=== PATIENT | female | born 1950 | race African-American/Black ===

== ENCOUNTER 2018-11-26 13:41 | Inpatient (IN) | payer MEDICARE, MEDICAID ==
[~2018-11-26] VITALS: Ht 157.5 cm; Wt 47.6 kg
[2018-11-26] MEDS ORDERED: MAG HYDROX/AL HYDROX/SIMETH 30 ML UDC PO PRN (16:00)
[2018-11-26] MEDS ORDERED: MAGNESIUM HYDROXIDE 30 ML UDC PO PRN (16:00)
[2018-11-26] MEDS ORDERED: ACETAMINOPHEN 325 MG TABLET PO PRN (16:00)
[2018-11-26] MEDS ORDERED: LORAZEPAM 0.5 MG TABLET PO PRN (16:00)
--- NOTE | 2018-11-26 16:00 | NUR ---
RN-CO: DR TOBAR GAVE ADMITTING ORDERS.
--- NOTE | 2018-11-26 16:30 | NUR ---
GPS COMPUTER SUPPORT SPECIALIST INSTRUCTOR NOTES Received patient from for [facility] under the (medical) care of Shaun Trinh and (psych care) Dr. Morales. Patient arrived on this unit @1530. via gurney with 2 mine analyst. Patient self-presented to [facility] for recent seizures. She was medically cleared but there were behavioral concerns, so psychiatry consulted. On 5150 hold for GD and DTO. Skin body assessment done. Patient is currently lying in bed, resting, easily aroused. Patient is displaying no s/s of apparent distress at this moment. Breathing is unlabored with equal rise and fall of the chest. Patient is aler and oriented x2 (self and place), verbally responsive. All belongings checked and documented by OTR TRUCK DRIVER. All contraband removed and stored in patient's locker. Patient oriented to room, floor, and staff with all questions and concerns addressed. Patient educated on the use of call lomas when any assistance is needed. Patient bed side rails are up x2 for safety. Bed in locked and lowest position with bed alarm on and call lomas within reach. Will continue to monitor patient Q15 minutes with the help of staff to maintain safety
[2018-11-26] MEDS ORDERED: RISP0.5T5 PO (16:47)
[2018-11-26] MEDS ORDERED: PHEN100C4 PO (16:47)
[2018-11-26] MEDS ORDERED: LOSA100T31 PO (16:47)
[2018-11-26] MEDS ORDERED: AMLO10TA7 PO (16:47)
[2018-11-26] MEDS ORDERED: ERGO400T7 PO (16:47)
--- NOTE | 2018-11-26 18:21 | NUR ---
GPS RN CLOSING NOTES Patient remained in bed, intermittently sleeping, easily aroused. No facial grimacing or moaning noted. Denies any pain. No SOB/labored breathing noted. Not in any apparent distress. Admitting orders are in. Medical provider came to assess patient. All needs provided and met. Safety measures implemented and observed. Kept clean and dry. Bed in locked and lowest position with bed alarm on and call lomas within reach. Will endorse to oncoming shift nurse
--- NOTE | 2018-11-26 18:24 | NUR ---
RN-CO: Patient was seen and examined by Eveline Trinh NP.
[2018-11-26 20:00] VITALS: BP 147/74
[2018-11-26 20:26] LABS: BASOPHILS # (AUTO) 0.1 /CMM (0.0-0.2); EOSINOPHILS % (AUTO) 2.9 % (0.0-6.0); HEMATOCRIT 29 % (33-45); HEMOGLOBIN 9.3 g/dL (11.5-14.8); LYMPHOCYTES # (AUTO) 1.4 /CMM (0.8-4.8); LYMPHOCYTES % (AUTO) 22.9 % (20.0-44.0); MEAN CORPUSCULAR HGB CONC 33 g/dl (31.0-36.0); MEAN CORPUSCULAR VOLUME 102 fL (82-100); MONOCYTES # (AUTO) 0.9 /CMM (0.1-1.30); MONOCYTES % (AUTO) 14.8 % (2.0-12.0); NEUTROPHILS # (AUTO) 3.7 /CMM (1.8-8.9); NEUTROPHILS % (AUTO) 58.4 % (43.0-81.0); PLATELET COUNT (AUTO) 271 /CMM (150-450); WHITE BLOOD COUNT (AUTO) 6.3 K/uL (4.3-11.0)
[2018-11-26 20:33] LABS: CALCIUM, SERUM 7.8 mg/dL (8.5-10.1); CREATININE 2.6 mg/dL (0.6-1.3); POTASSIUM 4.4 mmol/L (3.5-5.1)
[2018-11-26] MEDS: TEMAZEPAM 7.5 MG CAPSULE PO PRN (21:22)
[2018-11-27 07:10] LABS: BASOPHILS % (AUTO) 0.5 % (0.0-2.0); EOSINOPHILS % (AUTO) 3.4 % (0.0-6.0); HEMATOCRIT 29 % (33-45); HEMOGLOBIN 9.5 g/dL (11.5-14.8); LYMPHOCYTES # (AUTO) 1.7 /CMM (0.8-4.8); LYMPHOCYTES % (AUTO) 28.2 % (20.0-44.0); MEAN CORPUSCULAR HGB CONC 33 g/dl (31.0-36.0); MEAN CORPUSCULAR VOLUME 105 fL (82-100); MONOCYTES # (AUTO) 0.6 /CMM (0.1-1.30); MONOCYTES % (AUTO) 10.9 % (2.0-12.0); NEUTROPHILS # (AUTO) 3.4 /CMM (1.8-8.9); PLATELET COUNT (AUTO) 236 /CMM (150-450); RED BLOOD CELL COUNT(AUTO) 2.79 MIL/uL (4.0-5.2)
[2018-11-27 07:27] LABS: ALBUMIN 3.1 g/dL (3.4-5.0); BILIRUBIN,TOTAL 0.4 mg/dL (0.2-1.0); CREATININE 2.7 mg/dL (0.6-1.3); MAGNESIUM 1.8 mg/dL (1.8-2.4); PHOSPHORUS 3.4 mg/dL (2.5-4.9); POTASSIUM 4.4 mmol/L (3.5-5.1); TOTAL PROTEIN, SERUM 6.4 g/dL (6.4-8.2)
[2018-11-27 08:00] VITALS: BP 178/87
--- NOTE | 2018-11-27 08:45 | NUR ---
rn note received patient in bed at this time. able to communicate needs. alert and oriented X1-2. no facial grimacing noted for pain. no sob or distress noted on room air tolerating well. ambulatory with assistance. on 5150 hold until 11/29/18. will continue to monitor throughout shift
[2018-11-27] MEDS: risperiDONE 0.25 MG TABLET PO SCH ×2 (08:58→16:24)
[2018-11-27] MEDS: LOSARTAN POTASSIUM 50 MG TABLET PO SCH (08:59)
[2018-11-27] MEDS: AMLODIPINE BESYLATE 10 MG TABLET PO SCH (09:00)
[2018-11-27] MEDS: PHENYTOIN EXTENDED RELEASE 100 MG CAPSULE PO SCH ×2 (09:00→16:20)
--- NOTE | 2018-11-27 09:01 | NUR ---
rn note notified lew morrow np in regards to patient's phenytoin level-21.3 at this time to hold 0900 dose. order noted and carried out
--- NOTE | 2018-11-27 10:00 | NUR ---
rn note professor of industrial technology at bedside for [facility] for increased creatinine. awaiting results
[2018-11-27] MEDS: IV NS 0.9% 1,000 ML IV PRN (15:26)
--- NOTE | 2018-11-27 15:27 | NUR ---
rn note per lew morrow np to give one ns liter bolus. order noted and carried out. bolus started
[2018-11-27 16:00] VITALS: BP 131/72
[2018-11-27 16:03] VITALS: BP 131/72
--- NOTE | 2018-11-27 18:31 | NUR ---
rn closing note patient in bed asleep at this time. able to communicate needs. alert and oriented X1-2. no facial grimacing noted for pain. no sob or distress noted on room air tolerating well. ambulatory with assistance. on 5150 hold until 11/29/18. al due medications given as ordered by md. all nursing care needs attended to as needed. md aware about phenytoin level-21.3 and held dose for today. 1 liter of ns bolus given.will endorse to analyst market intelligence nurse for riya
[2018-11-27 20:00] VITALS: BP 144/63
[2018-11-27] MEDS: TEMAZEPAM 7.5 MG CAPSULE PO PRN (20:27)
[2018-11-28 07:44] LABS: BASOPHILS % (AUTO) 0.8 % (0.0-2.0); EOSINOPHILS % (AUTO) 3.7 % (0.0-6.0); HEMATOCRIT 32 % (33-45); HEMOGLOBIN 10.5 g/dL (11.5-14.8); LYMPHOCYTES # (AUTO) 1.4 /CMM (0.8-4.8); LYMPHOCYTES % (AUTO) 23.4 % (20.0-44.0); MEAN CORPUSCULAR HGB CONC 33 g/dl (31.0-36.0); MEAN CORPUSCULAR VOLUME 102 fL (82-100); MONOCYTES # (AUTO) 0.6 /CMM (0.1-1.30); MONOCYTES % (AUTO) 10.7 % (2.0-12.0); NEUTROPHILS # (AUTO) 3.6 /CMM (1.8-8.9); NEUTROPHILS % (AUTO) 61.4 % (43.0-81.0); PLATELET COUNT (AUTO) 262 /CMM (150-450); RED BLOOD CELL COUNT(AUTO) 3.14 MIL/uL (4.0-5.2); WHITE BLOOD COUNT (AUTO) 5.9 K/uL (4.3-11.0)
[2018-11-28 08:00] VITALS: BP 164/81
[2018-11-28] MEDS: AMLODIPINE BESYLATE 10 MG TABLET PO SCH (08:05)
[2018-11-28] MEDS: risperiDONE 0.25 MG TABLET PO SCH ×2 (08:05→16:55)
[2018-11-28] MEDS: PHENYTOIN EXTENDED RELEASE 100 MG CAPSULE PO SCH ×2 (08:06→17:00)
[2018-11-28] MEDS: LOSARTAN POTASSIUM 50 MG TABLET PO SCH (08:06)
[2018-11-28 08:27] LABS: CALCIUM, SERUM 8.7 mg/dL (8.5-10.1); CREATININE 2.6 mg/dL (0.6-1.3); MAGNESIUM 1.9 mg/dL (1.8-2.4); PHOSPHORUS 2.9 mg/dL (2.5-4.9)
[2018-11-28] MEDS: SERTRALINE HCL 25 MG TABLET PO SCH (10:29)
--- NOTE | 2018-11-28 14:30 | NUR ---
DEMETRIO called the pt's friend, Beckie ([phone]), and asked him about the house that the pt lives in and the people who live in the house with her. He stated that she is welcome to return when she is discharged.
--- NOTE | 2018-11-28 14:47 | NUR ---
Initial Discharge Plan: Pt currently resides at a home with others located at [address] [place] [address]; ([phone]). Per pt. she would like to either return there or find a place of her own. DEMETRIO will work with the pt and the MD regarding appropriate discharge planning. SW will form a safe and proper discharge.
[2018-11-28 16:00] VITALS: BP 155/72
--- NOTE | 2018-11-28 17:09 | NUR ---
TELMA HUDDLESTON PER YAHAIRA N.P. DUE TO HIGH LEVEL 21.3
[2018-11-28 18:27] LABS: APPEARANCE,URINE CLEAR (CLEAR); BILIRUBIN,URINE NEGATIVE (NEGATIVE); BLOOD, URINE TRACE Ery/uL (NEGATIVE); COLOR,URINE YELLOW (YELLOW); KETONES,URINE NEGATIVE (NEGATIVE); LEUKOCYTE ESTERASE ,URINE NEGATIVE (NEGATIVE); NITRITE, URINE NEGATIVE (NEGATIVE); PH,URINE 5.5 (5.0-8.0); PROTEIN,URINE TRACE mg/dl (NEGATIVE); UGLUCOSE NEGATIVE (NEGATIVE); UROBILINOGEN,URINE 0.2 EU/dL (0.2)
[2018-11-28 18:39] LABS: CREATININE, URINE 58.2 MG/DL (30.0-125.0); URINE TOTAL PROTEIN 48.7 mg/dL (0-11.9)
[2018-11-28 18:49] LABS: BACTERIA,URINE None seen /HPF (None Seen); RBC,URINE 0-2 /HPF (0-2); SQUAMOUS EPITHELIAL CELL,UR Few /HPF (None Seen); WBC,URINE 0-2 /HPF (0-3)
[2018-11-28 18:58] LABS: EOSINOPHIL,URINE None Seen
[2018-11-28 20:00] VITALS: BP 138/65
[2018-11-28] MEDS: TEMAZEPAM 7.5 MG CAPSULE PO PRN (20:30)
[2018-11-29 06:58] LABS: BASOPHILS % (AUTO) 0.7 % (0.0-2.0); EOSINOPHILS % (AUTO) 4.3 % (0.0-6.0); HEMATOCRIT 28 % (33-45); HEMOGLOBIN 9.2 g/dL (11.5-14.8); LYMPHOCYTES # (AUTO) 1.6 /CMM (0.8-4.8); LYMPHOCYTES % (AUTO) 29.9 % (20.0-44.0); MEAN CORPUSCULAR HGB CONC 33 g/dl (31.0-36.0); MEAN CORPUSCULAR VOLUME 102 fL (82-100); MONOCYTES # (AUTO) 0.6 /CMM (0.1-1.30); MONOCYTES % (AUTO) 11.1 % (2.0-12.0); NEUTROPHILS # (AUTO) 2.8 /CMM (1.8-8.9); PLATELET COUNT (AUTO) 212 /CMM (150-450); RED BLOOD CELL COUNT(AUTO) 2.74 MIL/uL (4.0-5.2); WHITE BLOOD COUNT (AUTO) 5.2 K/uL (4.3-11.0)
[2018-11-29 07:28] LABS: ALANINE AMINOTRANSFERASE 17 U/L (12-78); ALBUMIN 2.9 g/dL (3.4-5.0); ALKALINE PHOSPHATASE 74 U/L (46-116); ASPARTATE AMINOTRANSFERASE 17 U/L (15-37); BILIRUBIN,TOTAL 0.2 mg/dL (0.2-1.0); CALCIUM, SERUM 7.9 mg/dL (8.5-10.1); CARBON DIOXIDE 20 mmol/L (21-32); CHLORIDE 108 mmol/L (98-107); CREATININE 2.6 mg/dL (0.6-1.3); GLUCOSE 83 mg/dL (74-106); MAGNESIUM 1.8 mg/dL (1.8-2.4); PHOSPHORUS 2.9 mg/dL (2.5-4.9); POTASSIUM 5.3 mmol/L (3.5-5.1); SODIUM SERUM 137 mmol/L (136-145); UREA NITROGEN, BLOOD 54 mg/dL (7-18)
[2018-11-29 08:24] VITALS: BP 181/88
[2018-11-29] MEDS: SERTRALINE HCL 25 MG TABLET PO SCH (08:32)
[2018-11-29] MEDS: risperiDONE 0.25 MG TABLET PO SCH ×2 (08:32→17:25)
[2018-11-29] MEDS: LOSARTAN POTASSIUM 50 MG TABLET PO SCH (08:33)
[2018-11-29] MEDS: PHENYTOIN EXTENDED RELEASE 100 MG CAPSULE PO SCH ×2 (08:33→17:25)
[2018-11-29] MEDS: AMLODIPINE BESYLATE 10 MG TABLET PO SCH (08:34)
[2018-11-29 09:23] LABS: CREATINE KINASE, TOTAL 264 U/L (26-192)
--- NOTE | 2018-11-29 14:33 | NUR ---
URINE SENT PER ORDERS.
--- NOTE | 2018-11-29 15:00 | NUR ---
SKYE MCALLISTER NOTIFIED OF HIGH POTASSIUM TO GIVE ORDERS.
[2018-11-29 16:00] VITALS: BP 108/74
[2018-11-29] MEDS ORDERED: SODIUM POLYSTYRENE SULFONATE 15 G/60 ML BOTTLE PO ONE (16:00)
[2018-11-29] MEDS: IV NS 0.9% 1,000 ML IV PRN (16:31)
--- NOTE | 2018-11-29 18:00 | NUR ---
IV STARTED LT. FOREARM #22 ANGIO NS TO RUN IN DUE TO BUN AND ELEVATED CREATININE.
--- NOTE | 2018-11-29 18:25 | NUR ---
RN WENT IN TO NARRATIVE TO DOCUMENT NOTE AND FIND REFERENCE TO HIGH DILANTIN LEVEL FROM 11/27.TO CALL FRUIT OR NUT CROPS FARM MANAGER.
--- NOTE | 2018-11-29 18:30 | NUR ---
KAYEXALATE GIVEN DUE TO HIGH POTASSIUM.DILANTIN LEVEL FROM 11/27 CALLED TO [facility] MCALLISTER LAB ORDER FOR TOMORROW.
[2018-11-29 20:00] VITALS: BP 121/59
[2018-11-29 21:08] LABS: APPEARANCE,URINE CLEAR (CLEAR); BILIRUBIN,URINE NEGATIVE (NEGATIVE); BLOOD, URINE NEGATIVE Ery/uL (NEGATIVE); COLOR,URINE YELLOW (YELLOW); KETONES,URINE NEGATIVE (NEGATIVE); LEUKOCYTE ESTERASE ,URINE NEGATIVE (NEGATIVE); NITRITE, URINE NEGATIVE (NEGATIVE); PROTEIN,URINE TRACE mg/dl (NEGATIVE); UGLUCOSE NEGATIVE (NEGATIVE); UROBILINOGEN,URINE 0.2 EU/dL (0.2)
[2018-11-29 21:16] LABS: CREATININE, URINE 39.9 MG/DL (30.0-125.0); URINE TOTAL PROTEIN 32.1 mg/dL (0-11.9)
[2018-11-29 21:20] LABS: BACTERIA,URINE None seen /HPF (None Seen); EOSINOPHIL,URINE None Seen; RBC,URINE 0-2 /HPF (0-2); SQUAMOUS EPITHELIAL CELL,UR Few /HPF (None Seen); WBC,URINE 0-2 /HPF (0-3)
[2018-11-30 07:34] LABS: CALCIUM, SERUM 8.3 mg/dL (8.5-10.1); CREATININE 2.4 mg/dL (0.6-1.3); POTASSIUM 4.4 mmol/L (3.5-5.1)
[2018-11-30 07:37] LABS: PHENYTOIN (DILANTIN) 5.7 ug/ml (10.0-20.0)
[2018-11-30 08:00] VITALS: BP 157/89
[2018-11-30] MEDS: LOSARTAN POTASSIUM 50 MG TABLET PO SCH (09:26)
[2018-11-30] MEDS: AMLODIPINE BESYLATE 10 MG TABLET PO SCH (09:26)
[2018-11-30] MEDS: risperiDONE 0.25 MG TABLET PO SCH ×2 (09:26→17:11)
[2018-11-30] MEDS: SERTRALINE HCL 25 MG TABLET PO SCH (09:26)
[2018-11-30] MEDS: PHENYTOIN EXTENDED RELEASE 100 MG CAPSULE PO SCH ×2 (09:52→17:11)
--- NOTE | 2018-11-30 11:35 | NUR ---
GPS/RN-NOTES PROGRAM DIRECTOR/TRAFFIC DIRECTOR YAHAIRA MADE AWARE OF PATIENT LAB RESULTS AND DILANTIN LEVEL OF 5.7. WITH T.O ORDER TO GIVE DILANTIN ORDERED.
[2018-11-30 16:00] VITALS: BP 129/60
[2018-11-30 20:16] VITALS: BP 97/57
[2018-12-01 08:00] VITALS: BP 128/70
--- NOTE | 2018-12-01 08:01 | NUR ---
PT RESTING IN BED COMPLETED MEAL RESTING COMFORTABLY CALM AND COOPERATIVE
--- NOTE | 2018-12-01 10:28 | NUR ---
DEMETRIO faxed a referral to [facility] to the fax number: [phone].
[2018-12-01] MEDS: SERTRALINE HCL 25 MG TABLET PO SCH (11:11)
[2018-12-01] MEDS: LOSARTAN POTASSIUM 50 MG TABLET PO SCH (11:12)
[2018-12-01] MEDS: AMLODIPINE BESYLATE 10 MG TABLET PO SCH (11:12)
[2018-12-01] MEDS: risperiDONE 0.25 MG TABLET PO SCH ×2 (11:12→16:57)
[2018-12-01] MEDS: PHENYTOIN EXTENDED RELEASE 100 MG CAPSULE PO SCH ×2 (11:13→16:57)
[2018-12-01 16:00] VITALS: BP 141/65
[2018-12-01 20:22] VITALS: BP 118/67
[2018-12-02] MEDS: TEMAZEPAM 7.5 MG CAPSULE PO PRN ×2 (00:06→23:24)
[2018-12-02 08:00] VITALS: BP 128/64
[2018-12-02] MEDS: risperiDONE 0.25 MG TABLET PO SCH ×2 (09:27→16:13)
[2018-12-02] MEDS: PHENYTOIN EXTENDED RELEASE 100 MG CAPSULE PO SCH ×2 (09:27→16:13)
[2018-12-02] MEDS: SERTRALINE HCL 25 MG TABLET PO SCH (09:27)
[2018-12-02] MEDS: AMLODIPINE BESYLATE 10 MG TABLET PO SCH (09:28)
[2018-12-02] MEDS: LOSARTAN POTASSIUM 50 MG TABLET PO SCH (09:32)
--- NOTE | 2018-12-02 09:39 | NUR ---
SW called [facility] ([phone]) and spoke to Harmony who stated that the pt was not accepted to the facility due to her drug use and because they do not believe that they can accommodate the pt's current medications.
--- NOTE | 2018-12-02 09:47 | NUR ---
PT RESTING IN BED NO NOTED DISTRES CALM AND COOPERATIVE EVEN RESPIRATION PT ATE 100% OF BREAKFAST AND TAKEN ALL MEDICATIONS PT PLEASANT THIS AM
--- NOTE | 2018-12-02 09:56 | NUR ---
DEMETRIO faxed a referral to facilities: [facility] to the fax number: [phone] [facility] to the fax number: [phone].
--- NOTE | 2018-12-02 10:01 | NUR ---
Kiersten ([phone]) from [facility] contacted the and stated that their facility is full until next week.
--- NOTE | 2018-12-02 10:31 | NUR ---
Josh ([phone]) from [facility] contacted the SW and stated that their DON reviewed the referral and declined admission for the pt.
--- NOTE | 2018-12-02 10:34 | NUR ---
DEMETRIO sent a referral to [facility] with the attention to Ilene to the fax number: [phone].
[2018-12-02 12:11] LABS: *SPE A/G RATIO 1.2 (0.7-1.7); *SPE ALBUMIN 3.3 g/dL (2.9-4.4); *SPE ALPHA-1-GLOBULIN 0.2 g/dL (0.0-0.4); *SPE ALPHA-2-GLOBULIN 0.6 g/dL (0.4-1.0); *SPE BETA GLOBULIN 0.8 g/dL (0.7-1.3); *SPE GLOBULIN, TOTAL 2.7 g/dL (2.2-3.9); *SPE M-SPIKE 0.2 g/dL (Not Observed)
--- NOTE | 2018-12-02 13:10 | NUR ---
Ilene Rees ([phone]) from [facility] contacted the SW and informed her that the pt was accepted to the facility and inquired about her discharge date.
[2018-12-02 16:00] VITALS: BP 159/95
[2018-12-02 20:00] VITALS: BP 128/73
[2018-12-03 08:00] VITALS: BP 150/74
[2018-12-03] MEDS: LOSARTAN POTASSIUM 50 MG TABLET PO SCH (09:54)
[2018-12-03] MEDS: risperiDONE 0.25 MG TABLET PO SCH (09:54)
[2018-12-03] MEDS: SERTRALINE HCL 25 MG TABLET PO SCH (09:54)
[2018-12-03 09:55] VITALS: BP 150/74
[2018-12-03] MEDS: PHENYTOIN EXTENDED RELEASE 100 MG CAPSULE PO SCH (09:55)
[2018-12-03] MEDS: AMLODIPINE BESYLATE 10 MG TABLET PO SCH (09:55)
--- NOTE | 2018-12-03 10:23 | NUR ---
SW spoke to the pt about her discharge plan as today is the day of her discharge and had the pt sign a choice of vendor form.
--- NOTE | 2018-12-03 10:23 | NUR ---
SW conducted a substance use intervention and assessment with the pt.
--- NOTE | 2018-12-03 12:03 | NUR ---
DEMETRIO called the pt's friend, Beckie ([phone]), and informed him that the pt is being discharged to [facility] and provided him with the address and the phone number.
--- NOTE | 2018-12-03 13:34 | NUR ---
Discharge Note: Pt was discharged to [facility] ([facility]) [place] at [address] [place] [address]; ([phone]). Pt was transported via [facility] (Trip #[id number]) at 1:00PM. Pts friend, Beckie ([phone]), was notified of this placement. Upon discharge, the pt appeared to be in a euthymic mood and presented with a calm affect. Pt denied both suicidal and homicidal ideation as well as both auditory and visual hallucinations. Pt was provided with substance use referrals as well as smoking cessation referrals that are listed below. Pts treatment team at [facility] will address her substance use. Pt will be under the care of her psychiatrist, Dr. Morales, located at [address] [address], [place] [address]; and her el teacher, Dr. Lee, located at [address] [facility], [address] [place] [address]; . Substance Abuse Referrals: [facility] [address] [facility] [place] [address] Tel. [facility] [address] [place] Provider Mental Health Treatment Tele-dermatology HIV Services [facility] [place] [address] [place] [address] [facility] [address] [place] [address] Smoking Cessations Referrals: [facility] 800-LUNGUSA [facility] [phone]
--- NOTE | 2018-12-03 14:10 | NUR ---
DISCHARGE NOTES PATIENT DISCHARGE AT THIS TIME GOING SNF. PATIENT STABLE MED COMPLIANT, V/S STABLE. PATIENT DENIED SI/HI/AVH AT THIS TIME. MED RECONCILIATION AND DISCHARGE ORDER REVIEWED AND EXPLAINED TO . REPORT GIVEN SNF RN ZENAIDA. RN VERBALIZED UNDERSTANDING. BELONGING RETURNED BACK TO THE PATIENT . PATIENT WILL FOLLOW SNF SPINNING ROOM WORKER, AND PSYCHIATRIST. PATIENT HAS NO FAMILY. PATIENT BUILDING CUSTODIAN BY AMBULANCE.
--- NOTE | 2018-12-16 15:00 | NUR ---
15 Day Substance Follow Up: Pt is exempt from the follow up due to a discharge to a snf facility called [facility].
== END 2018-12-03 14:09 | DRG 881 ==
LOC: GPS 15:11
PROVIDERS: ADMIT Psychiatry & Neurology Psychosomatic Medicine; ATTEND Psychiatry & Neurology Psychosomatic Medicine
DX: F32.9 Major depressive disorder, single episode, unspecified (principal); N18.9 Chronic kidney disease, unspecified; F29 Unspecified psychosis not due to a substance or known physiological condition; E86.0 Dehydration; I12.9 Hypertensive chronic kidney disease with stage 1 through stage 4 chronic kidney disease, or unspecified chronic kidney disease; G40.909 Epilepsy, unspecified, not intractable, without status epilepticus; D53.1 Other megaloblastic anemias, not elsewhere classified; E78.00 Pure hypercholesterolemia, unspecified; E87.5 Hyperkalemia; D63.1 Anemia in chronic kidney disease
CPT/HCPCS: 36415; 76770-TC; 80048-TC; 80053-TC; 80061-TC; 80185-TC; 81000-TC; 82550-TC; 82553-TC; 82570-TC; 83735-TC; 83970; 84100-TC; 84155; 84155-TC; 84165; 84300-TC; 85025-TC; J7030